=== PATIENT | male | born 1995 | race Caucasian/White ===

== ENCOUNTER 2024-08-15 06:36 | Day surgery (SDC) | payer OTHER ==
[~2024-08-15] VITALS: Ht 174 cm; Wt 80.2 kg
[2024-08-15] VITALS (13 sets, daily range): BP systolic 100–136; BP diastolic 47–78
[~2024-08-15 06:36] MED LIST: ARIMIDEX1 M2 PO; DEPO-TESTO200 MG/1 M IM; METO25ER PO; METPHE10 PO; MONTELUKAST SOD10 MG PO
[2024-08-15] MEDS ORDERED: Lactated Ringer's 1,000 ML IV SCH (07:10)
[2024-08-15] MEDS ORDERED: Ampicillin Sod/Sulbactam Sod 3 GM in NS 100 ML IV SCH (07:10)
[2024-08-15] MEDS ORDERED: MULVITA PO (07:19)
[2024-08-15] MEDS ORDERED: FISH OIL 1,0001 EA10 PO (07:19)
[2024-08-15] MEDS ORDERED: Lidocaine HCl 2% 20 ML MDV ONE (07:32)
[2024-08-15] MEDS ORDERED: Ondansetron HCl 2 MG / ML 2ML Vial ONE (07:32)
[2024-08-15] MEDS ORDERED: FentaNYL Citrate 50 MCG/ML 2 ML Injection ONE (07:32)
[2024-08-15] MEDS ORDERED: propofoL 20 ML IV ONE (07:32)
[2024-08-15] MEDS ORDERED: Dexamethasone Sod Phos 10 MG/ML 1ML VIAL ONE (07:32)
[2024-08-15] MEDS ORDERED: Bupivacaine 0.5% HCl 5 MG/ML 30MLVIAL ONE (07:37)
[2024-08-15] MEDS ORDERED: Midazolam HCl 1MG / ML 2ML Vial IV ONE (07:50)
--- NOTE | 2024-08-15 08:06 | NUR ---
History, Chart, Medications and Allergies reviewed before start of procedure. Patient up to Ambulate independently. Gait steady. Pre-Op teaching done. Pt verbalizes understanding. Patient confirms NPO status and agrees with scheduled surgery. Lungs clear T/O to Auscultation. Patient States Post-Procedure ride home has been arranged.
[2024-08-15] MEDS ORDERED: Ketorolac Tromethamine 30mg Vial ONE (08:23)
[2024-08-15] MEDS ORDERED: Triple Antibiotic Ointment 30 gm ONE (08:26)
[2024-08-15] MEDS ORDERED: OxyCODONE 5 mg/Acetamin 325 mg TABLET PO PRN (08:55)
[2024-08-15] MEDS ORDERED: HYDROmorphone HCl/Pf 1MG SYR ONE (09:03)
--- NOTE | 2024-08-15 09:23 | NUR ---
PT TO DAY SURGERY STEP DOWN FROM PACU WITH EXAM UNDER ANESTHESIA, HEMORRHOIDECTOMY; BEDSIDE REPORT RECEIVED. PT IS AWAKE, ALERT AND ORIENTED; ABLE TO MOVE SELF IN BED. VSS. PT HAS GUAZE IN RECTUM AND UNDERWEAR ON TOP; C/D/I. PT REQUESTING PO FLUIDS.
--- NOTE | 2024-08-15 09:29 | NUR ---
PT TOLERATING PO FLUIDS WELL.
--- NOTE | 2024-08-15 09:55 | NUR ---
Discharge instructions reviewed with patient. Patient verbalizes understanding. Copy given to patient to take home. ICE PACK GIVEN. SITZ BATH PACK GIVEN.
--- NOTE | 2024-08-15 09:56 | NUR ---
Patient States Post-Procedure ride home has been arranged.
--- NOTE | 2024-08-15 10:21 | NUR ---
Patient up to Ambulate independently. Gait steady. Discharged via wheelchair to private car for ride home.
== END 2024-08-15 10:22 | disposition home or self-care (01) ==
LOC: ORSCMMR 06:36 → ORD 08:00 → ORSCMMR 08:00
PROVIDERS: Surgery
PROC: 06BY0ZC Excision of Hemorrhoidal Plexus, Open Approach (ICD-10-PCS; principal; 2024-08-15 08:00)
PROC: 0HB9XZX Excision of Perineum Skin, External Approach, Diagnostic (ICD-10-PCS; principal; 2024-08-15 08:00)
DX: K64.4 Residual hemorrhoidal skin tags (principal); K64.8 Other hemorrhoids; F41.9 Anxiety disorder, unspecified; F32.A Depression, unspecified; F90.9 Attention-deficit hyperactivity disorder, unspecified type; Z79.899 Other long term (current) drug therapy; Z87.891 Personal history of nicotine dependence
CPT/HCPCS: 88304; A9270; J0295; J1100; J1171; J1885; J2250; J2405; J2704; J3010; J7120

== ENCOUNTER → 2024-11-01 | Outpatient (CLI) | payer OTHER ==
[~2024-11-01] MED LIST changes: +FISH OIL 1,0001 EA10 PO; +MULVITA PO
[2024-11-01 14:58] LABS: BASOPHILS ABSOLUTE AUTO 0.06 K/mm3 (0.00-0.23); BASOPHILS PERCENT AUTO 1 % (0-2); EOSINOPHILS ABSOLUTE AUTO 0.72 K/mm3 (0.00-0.68); EOSINOPHILS PERCENT AUTO 8 % (0-6); Hematocrit 43.3 % (37.0-53.0); Hemoglobin 14.7 g/dL (13.5-17.5); IMMATURE GRAN ABSOLUTE AUTO 0.02 K/mm3 (0.00-0.10); IMMATURE GRAN PERCENT AUTO 0 % (0-1); LYMPHOCYTES ABSOLUTE AUTO 2.27 K/mm3 (0.84-5.20); LYMPHOCYTES PERCENT AUTO 27 % (21-46); MONOCYTES ABSOLUTE AUTO 0.92 K/mm3 (0.16-1.47); MONOCYTES PERCENT AUTO 11 % (4-13); Mean Corpuscular HGB 30.9 pg (26.0-34.0); Mean Corpuscular HGB Conc 33.9 g/dL (31.5-36.5); Mean Corpuscular Volume 91 fL (80-100); Mean Platelet Volume 9.3 fL (9.1-12.4); NEUTROPHILS ABSOLUTE AUTO 4.57 K/mm3 (1.96-9.15); NEUTROPHILS PERCENT AUTO 54 % (41-73); Platelet Count 369 K/mm3 (150-400); RDW Coefficient Variation 13.4 % (11.7-14.2); Red Blood Cell Count 4.75 M/mm3 (4.30-5.90); White Blood Cell Count 8.56 K/mm3 (4.00-11.30)
[2024-11-01 15:35] LABS: Albumin, Blood 3.7 g/dL (3.4-5.0); Albumin/Globulin Ratio 1.1 (0.8-1.8); Bilirubin, Total 0.3 mg/dL (0.1-1.0); Bun/Creatinine Ratio 28.8 (12.0-20.0); Calcium, Blood 9.3 mg/dL (8.5-10.1); Creatinine, Blood 0.87 mg/dL (0.60-1.20); Globulin, Blood 3.3 g/dL (2.2-4.0); Potassium, Blood 3.7 mmol/L (3.5-5.5)
== END | disposition home or self-care (01) ==
LOC: LAB 14:24 → LAB SHORT 14:24
PROVIDERS: Nurse Practitioner Family
DX: R06.02 Shortness of breath (principal)
CPT/HCPCS: 80053; 83880; 85025

== ENCOUNTER → 2025-08-27 | Outpatient (CLI) | payer OTHER ==
[2025-08-29 11:00] LABS: HIV 1,2 COMBO ANTIGEN/ANTIBODY Negative (Negative)
== END ==
LOC: LAB 15:50 → LAB SHORT 15:50
PROVIDERS: Physician Assistant
DX: Z20.2 Contact with and (suspected) exposure to infections with a predominantly sexual mode of transmission (principal); N50.812 Left testicular pain
CPT/HCPCS: 86592; 87389

== ENCOUNTER 2025-10-01 14:46 | Emergency (ER) | payer OTHER ==
[~2025-10-01] VITALS: Ht 172.7 cm; Wt 68.0 kg
[2025-10-01 15:13] LABS: BASOPHILS ABSOLUTE AUTO 0.08 K/mm3 (0.00-0.23); BASOPHILS PERCENT AUTO 1 % (0-2); EOSINOPHILS ABSOLUTE AUTO 0.62 K/mm3 (0.00-0.68); EOSINOPHILS PERCENT AUTO 8 % (0-6); Hematocrit 46.4 % (37.0-53.0); Hemoglobin 16.5 g/dL (13.5-17.5); IMMATURE GRAN ABSOLUTE AUTO 0.04 K/mm3 (0.00-0.10); IMMATURE GRAN PERCENT AUTO 1 % (0-1); LYMPHOCYTES ABSOLUTE AUTO 2.35 K/mm3 (0.84-5.20); LYMPHOCYTES PERCENT AUTO 30 % (21-46); MONOCYTES ABSOLUTE AUTO 0.98 K/mm3 (0.16-1.47); MONOCYTES PERCENT AUTO 13 % (4-13); Mean Corpuscular HGB Conc 35.6 g/dL (31.5-36.5); Mean Corpuscular Volume 91 fL (80-100); NEUTROPHILS ABSOLUTE AUTO 3.73 K/mm3 (1.96-9.15); NEUTROPHILS PERCENT AUTO 48 % (41-73); NRBC ABSOLUTE 0.00 K/mm3 (0.00-0.02); NRBC Auto 0.0 /100 WBC (0.0-0.2); Platelet Count 303 K/mm3 (150-400); RDW Coefficient Variation 12.3 % (11.7-14.2); RDW Standard Deviation 41.3 fL (35.1-46.3)
[2025-10-01 15:35] LABS: Alanine Aminotransfer (ALT/SGP 56.0 U/L (12-78); Albumin, Blood 4.1 g/dL (3.4-5.0); Albumin/Globulin Ratio 1.2 (0.8-1.8); Anion Gap 8.0 mmol/L (3-11); Aspartate Aminotrans (AST/SGOT 36.0 U/L (12-37); Bilirubin, Total 0.3 mg/dL (0.1-1.0); Blood Urea Nitrogen 15.0 mg/dL (8-24); CO2, Blood 32.0 mmol/L (21-32); Calcium, Blood 9.1 mg/dL (8.5-10.1); Chloride, Blood 102.0 mmol/L (98-108); Creatinine, Blood 0.96 mg/dL (0.60-1.20); Globulin, Blood 3.3 g/dL (2.2-4.0); Glucose, Blood 98.0 mg/dL (70-99); Potassium, Blood 3.8 mmol/L (3.5-5.5); Sodium, Blood 138.0 mmol/L (136-145); Total Protein, Blood 7.4 g/dL (6.4-8.2)
[2025-10-01] MEDS ORDERED: Ketorolac Tromethamine 15mg Vial IV ONE (15:50)
[2025-10-01] MEDS ORDERED: HYDHCL25 PO (16:08)
[2025-10-01 16:33] VITALS: BP 134/85
== END 2025-10-01 16:33 | disposition home or self-care (01) ==
LOC: ER 14:46
PROVIDERS: Physician Assistant
DX: F14.90 Cocaine use, unspecified, uncomplicated (principal); R07.89 Other chest pain; Z79.899 Other long term (current) drug therapy; Z59.89 Other problems related to housing and economic circumstances
CPT/HCPCS: 71046; 80053; 84484; 85025; 93005; 93010; 96374; 99285-25; A9270; J1885